=== PATIENT | female | born 1985 | race Caucasian/White ===

== ENCOUNTER 2018-06-24 13:06 | Emergency (ER) | payer MEDICAID ==
[~2018-06-24] VITALS: Ht 165.1 cm; Wt 127.3 kg
[~2018-06-24 13:06] MED LIST: SULF1TAB48 PO
[2018-06-24] MEDS ORDERED: DICL100G15 TOP (13:48)
[2018-06-24 13:59] VITALS: BP 141/84
== END 2018-06-24 14:01 | disposition home or self-care (01) ==
LOC: ER 13:06
DX: I82.401 Acute embolism and thrombosis of unspecified deep veins of right lower extremity (principal); E11.9 Type 2 diabetes mellitus without complications
CPT/HCPCS: 99283